=== PATIENT | male | born 2000 | race Two or more races ===

== ENCOUNTER 2020-02-28 16:38 | Emergency (ER) | payer SELFPAY ==
[~2020-02-28] VITALS: Ht 175.3 cm; Wt 72.6 kg
[2020-02-28 16:59] VITALS: BP 131/77
== END 2020-02-28 17:12 | disposition left against medical advice (07) ==
LOC: EDBD 16:38 → ER 16:38
DX: T65.91XA Toxic effect of unspecified substance, accidental (unintentional), initial encounter (principal); Z53.21 Procedure and treatment not carried out due to patient leaving prior to being seen by health care provider
CPT/HCPCS: 93005